=== PATIENT | female | born 1985 | race Two or more races ===

== ENCOUNTER 2016-05-26 01:40 | Inpatient (IN) | payer MEDICAID, OTHER ==
[~2016-05-26] VITALS: Ht 165.1 cm; Wt 57.0 kg
[2016-05-26 04:09] VITALS: BP 107/71; PULSE 72; RESP 18; TEMP 97.7; O2SAT 100
[2016-05-26] MEDS ORDERED: LORazepam 1 MG TAB PO PRN (04:15)
[2016-05-26] MEDS ORDERED: FLUMAZENIL 0.5 MG/5 ML VIAL IV PUSH PRN (04:15)
[2016-05-26] MEDS ORDERED: LORazepam 2 MG TAB PO PRN (04:15)
[2016-05-26] MEDS ORDERED: ACETAMINOPHEN 325 MG TAB PO PRN (04:15)
[2016-05-26] MEDS ORDERED: ALUMINUM/MAGNESIUM/SIMETH 30 ML CUP PO PRN (04:15)
[2016-05-26] MEDS ORDERED: MAGNESIUM HYDROXIDE SUSP 30 ML CUP PO PRN (04:15)
[2016-05-26] MEDS ORDERED: LORazepam 2 MG/ML VIAL IV PUSH PRN ×4 (04:15)
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
== END 2016-05-26 14:00 | disposition home or self-care (01) | DRG 882 ==
LOC: H260 01:40
PROVIDERS: ADMIT Psychiatry & Neurology Psychiatry; ATTEND Psychiatry & Neurology Psychiatry
DX: F43.25 Adjustment disorder with mixed disturbance of emotions and conduct (principal)